=== PATIENT | female | born 1950 | race Caucasian/White ===

== ENCOUNTER 2016-04-21 13:53 | Day surgery (SDC) | payer MEDICARE, OTHER ==
--- NOTE | ~2016-04-21 | OP ---
Record Of Operation [facility] [address] [place]. [address] NAME: BARRERA GAVIRIA : 46 STATUS : [facility] UNIT#: [id number] AGE: 66 ADM/REG DATE : 04/21/16 MR#: [id number] REPORT SERV DATE: 04/22/16 DICTATED BY: ISA SWEENEY DATE: 04/22/16 REPORT STATUS : Draft TRANSCRIBED BY: MODL DATE: 04/22/16 DATE OF PROCEDURE: 04/21/2016 PREOPERATIVE DIAGNOSIS: Surgical absence of the right breast, infected seroma. POSTOPERATIVE DIAGNOSIS: Surgical absence of the right breast, infected seroma. 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 INDICATIONS AND FINDINGS OF THE PROCEDURE: This middle-aged female is status post a right tissue expansion reconstruction. She is now appropriate for the above-described operative intervention. DETAILS OF THE PROCEDURE: The patient was brought to the operating room. After adequate sedation was achieved, she was prepped and draped in the usual sterile fashion for the above described procedure. The central circumvertical incision was then excised and dissection was carried down to the exposed implant. The implant was removed. The cavity was then curetted of exuberant granulation tissue. This was cultured. She was then treated with onlays of peroxide and Hibiclens dressings. An inferior 15-Japanese drain was placed. She was then closed with multiple layers of 3-0 Monocryl and 5-0 nylon. A light dressing was placed and she was remanded to the recovery room in stable condition. All sponge and needle counts were correct. KATARZYNA Isa Sweeney M.D. / [id number] CC: Ayse Damon MD
[~2016-04-21 13:53] MED LIST: AMB10 PO; AT25 PO; BYSTOLIC5 MG PO; CLEOCIN300 MG PO; EDARBI80 MG PO; EXFORGE1 TAB PO; LEXAPRO20 PO; OXYCON10 PO; PCET PO; PERCOCET1 TA2 PO; PERCOCET1 TA4 PO; XARELTO15 MG PO; XARELTO20 MG PO; ZOCOR20 PO; ZOCOR40 PO
[2016-04-21 15:29] LABS: BASOPHILS 0.4 %; BASOPHILS ABSOLUTE 0.02 10/3/uL (0.0-0.16); EOSINOPHILS 1.5 %; EOSINOPHILS ABSOLUTE 0.07 10/3/uL (0.0-0.53); HEMATOCRIT 35.9 % (36.0-48.0); HEMOGLOBIN 11.4 g/dL (12.0-16.0); LYMPHOCYTES 19.3 %; MEAN CORPUS HGB CONC 31.8 g/dL (32.0-36.0); MEAN PLATELET VOLUME 9.7 fL (9.2-13.0); MONOCYTES 6.4 %; NEUTROPHILS 72.4 %; NEUTROPHILS ABSOLUTE 3.37 10/3/uL (2.02-8.40); PLATELET COUNT 244 10/3/uL (150-400); RBC DISTRIBUTION WIDTH 14.1 % (12.0-16.0); WHITE BLOOD CELLS 4.7 10/3/uL (4.5-10.5)
[2016-04-21 15:31] LABS: MANUAL DIFF NO %; MEAN CORPUSCULAR HEMOGLOB 29.2 pg (26.0-34.0); MEAN CORPUSCULAR VOLUME 92.1 fL (80-100)
[2016-04-21 15:36] LABS: PARTIAL THROMBO TIME 23.5 SEC (22.5-37.2); PROTIME (NOT ORD) 13.5 SEC (12.0-14.5)
[2016-04-21 15:39] LABS: BUN (BLOOD UREA NITROGEN) 23 MG/DL (6-23); CALCIUM, SERUM 9.3 MG/DL (8.5-10.4); CHLORIDE, SERUM 107 MMOL/L (96-112); CO2 (CARBON DIOXIDE) 25 MMOL/L (24-34); CREATININE 0.81 MG/DL (0.55-1.02); GFR AFRICAN AMERICAN 86 ML/MIN (>=60); GFR NON AFRICAN AMERICAN 75 ML/MIN (>=60); GLUCOSE, SERUM 103 MG/DL (60-99); POTASSIUM, SERUM 4.1 MMOL/L (3.5-5.3); SODIUM, SERUM 141 MMOL/L (135-148)
[2016-04-21 16:22] LABS: PFA (COL/EPI) > 300 SEC (72-180)
[2016-04-21 16:23] LABS: PFA (COL/ADP) 91 SEC (51-105)
[2016-08-10] MEDS ORDERED: EFFEXXR75 PO (15:51)
[2016-08-10] MEDS ORDERED: VITAMIN B-121000 MC1 SL (15:52)
[2016-08-10] MEDS ORDERED: NEUR600 PO (15:52)
[2016-08-10] MEDS ORDERED: D 5000 PO (15:53)
== END 2016-04-21 20:51 | disposition home or self-care (01) ==
LOC: SDC 13:53
PROVIDERS: Surgery Surgery of the Hand
PROC: 0HPT0NZ Removal of Tissue Expander from Right Breast, Open Approach (ICD-10-PCS; principal; 2016-04-21 15:30)
DX: T85.49XA Other mechanical complication of breast prosthesis and implant, initial encounter (principal); N64.89 Other specified disorders of breast; I10 Essential (primary) hypertension; Z86.79 Personal history of other diseases of the circulatory system; F41.9 Anxiety disorder, unspecified; M79.7 Fibromyalgia; E66.9 Obesity, unspecified; Z79.899 Other long term (current) drug therapy; Z88.0 Allergy status to penicillin; Z85.3 Personal history of malignant neoplasm of breast
CPT/HCPCS: 80048; 85025; 85576; 85610; 85730; 87015; 87070; 87075; 87077; 87102; 87116; 87186; 87205; A9270-GY; J2250; J2270; J3370